=== PATIENT | female | born 1955 | race Hispanic/Latino ===

== ENCOUNTER 2020-03-27 10:01 | Day surgery (SDC) | payer OTHER, SELFPAY | END 2020-03-27 11:45 | disposition home or self-care (01) | LOC: CATHLABREC 10:01 | PROVIDERS: ATTEND Internal Medicine | DX: I44.2 Atrioventricular block, complete (principal) | CPT/HCPCS: 76000 ==

== ENCOUNTER 2021-09-04 16:13 | Emergency (ER) | payer MEDICARE, SELFPAY ==
[2021-09-04] MEDS ORDERED: NITROGLYCERIN 0.4 MG TAB SUBL SL ONE (17:09)
[2021-09-04] MEDS ORDERED: oxyCODONE /ACETAMINOPHEN 5-325MG TAB PO ONE (17:11)
--- NOTE | 2021-09-04 17:12 | Emergency Department Report ---
ED General Adult HPI - General Chief complaint: Skin Rash Stated complaint: I have a rash on my left chest, left arm and back. I think it is shingles. It is causing me to have chest pain. Time Seen by Provider: 09/04/21 16:52 Source: patient, RN notes reviewed, old records reviewed Mode of arrival: Ambulatory Limitations: No Limitations - History of Present Illness Initial comments: The patient was evaluated in the emergency department for symptoms described in the history of present illness. He/she was evaluated in the context of the global COVID-19 pandemic, which necessitated consideration that the patient might be at risk for infection with the virus that causes COVID-19. Institutional protocols and algorithms that pertain to the evaluation of patients at risk for COVID-19 are in a state of rapid change based on information released by regulatory bodies including the CDC and federal and state organizations. These policies and algorithms were followed during the patient's care in the emergency department. Please note that these policies, procedures and recommendations changed on a rapid basis. The patient is a 66-year-old female. She typically follows with [facility] cardiology. She presents to the ER today with a complaint of "I think I have shingles." The patient reports that she has not received her shingles vaccination. She presents to the ER with a few days of anterior left-sided chest wall pain, left-sided back pain, and left upper extremity pain, associated with a pruritic intensely painful rash. She denies travel, surgery, immobilization. She reports that she saw her email designer last month, and reports an extensive work-up as an outpatient, including stress test and echocardiogram, which she reports were unremarkable. She does report that she has a central and left- sided chest pain, correlating with the distribution of her rash, she also has some chronic shortness of breath, and she reports a little bit of lightheadedness, without loss of consciousness. She reports that she was diagnosed as an outpatient with intermittent A. fib by her email designer, who recommended eliquis. She also reports that this medication is too expensive for her to take at this time, and reports that she believes that it cost $300 per month. She is therefore not taking it. She otherwise reports compliance with her outpatient medications. -: Gradual, days(s) Location: chest, back, left, upper extremity Radiation: back, other (Left upper extremity) Quality: burning, aching Consistency: constant Improves with: none Worsens with: movement - Related Data Home Medications Medication Instructions Recorded Confirmed Last Taken Aspirin [Aspirin BABY CHEW TAB] 81 mg PO DAILY 03/29/20 03/29/20 03/28/20 Previous Rx's Medication Instructions Recorded Last Taken Type ALPRAZolam [Xanax TAB] 1 mg PO QHS PRN 7 Days #7 tablet 03/14/20 03/28/20 Rx AtorvaSTATin [Lipitor] 20 mg PO QHS 30 Days #30 tablet 03/14/20 03/28/20 Rx lisinopriL [Zestril TAB] 40 mg PO QDAY 30 Days #30 tablet 03/14/20 03/28/20 Rx oxyCODONE /ACETAMINOPHEN [Percocet 1 tab PO Q6HR PRN #7 tablet 03/14/20 03/28/20 Rx 5/325] cephALEXin [Keflex] 500 mg PO Q8HR 7 Days #21 cap 03/30/20 Unknown Rx Acetaminophen [Non-Aspirin Extra 650 mg PO Q6HR PRN #30 tablet 09/04/21 Unknown Rx Strength] Capsaicin 0.075% [Zostrix Hp 1 applicatio TP TID 7 Days #1 tube 09/04/21 Unknown Rx 0.075%] Valacyclovir HCl [Valtrex] 1,000 mg PO TID 10 Days #30 tab 09/04/21 Unknown Rx Allergies Allergy/AdvReac Type Severity Reaction Status Date / Time aspirin Allergy Hives Verified 03/29/20 15:33 TAPE Allergy Intermediate Hives Uncoded 03/29/20 10:01 ED Review of Systems ROS: Stated complaint: CHEST PAIN Other details as noted in HPI Constitutional: denies: fever Eyes: denies: vision change ENT: denies: epistaxis Respiratory: shortness of breath. denies: cough Cardiovascular: chest pain Gastrointestinal: denies: abdominal pain, vomiting, diarrhea, hematemesis, melena, hematochezia Genitourinary: denies: dysuria Musculoskeletal: back pain Skin: rash, lesions Neurological: weakness (Chronic) Hematological/Lymphatic: denies: easy bleeding ED Past Medical Hx - Past Medical History Previous Medical History?: Yes Hx Hypertension: Yes Hx Heart Attack/AMI: Yes (2013; medical management only) Hx Congestive Heart Failure: Yes Hx GERD: Yes Hx Liver Disease: No Hx Renal Disease: No Hx Arthritis: Yes Hx Asthma: Yes Hx COPD: Yes - Surgical History Hx Pacemaker: Yes Hx Internal Defibrillator: No - Social History Smoking Status: Never Smoker - Medications Home Medications: Home Medications Medication Instructions Recorded Confirmed Last Taken Type ALPRAZolam [Xanax TAB] 1 mg PO QHS PRN 7 Days #7 tablet 03/14/20 03/29/20 03/28/20 Rx AtorvaSTATin [Lipitor] 20 mg PO QHS 30 Days #30 tablet 03/14/20 03/29/20 03/28/20 Rx lisinopriL [Zestril TAB] 40 mg PO QDAY 30 Days #30 tablet 03/14/20 03/29/20 03/28/20 Rx oxyCODONE /ACETAMINOPHEN [Percocet 1 tab PO Q6HR PRN #7 tablet 03/14/20 03/29/20 03/28/20 Rx 5/325] Aspirin [Aspirin BABY CHEW TAB] 81 mg PO DAILY 03/29/20 03/29/20 03/28/20 History cephALEXin [Keflex] 500 mg PO Q8HR 7 Days #21 cap 03/30/20 Unknown Rx Acetaminophen [Non-Aspirin Extra 650 mg PO Q6HR PRN #30 tablet 09/04/21 Unknown Rx Strength] Capsaicin 0.075% [Zostrix Hp 1 applicatio TP TID 7 Days #1 tube 09/04/21 Unknown Rx 0.075%] Valacyclovir HCl [Valtrex] 1,000 mg PO TID 10 Days #30 tab 09/04/21 Unknown Rx ED Physical Exam - General Limitations: No Limitations General appearance: alert, in no apparent distress, obese - Head Head exam: Present: atraumatic, normocephalic - Eye Eye exam: Present: normal appearance, EOMI. Absent: nystagmus - ENT ENT exam: Present: normal exam, normal orophraynx, mucous membranes moist, normal external ear exam - Neck Neck exam: Present: normal inspection, full ROM. Absent: tenderness, meningismus - Respiratory Respiratory exam: Present: normal lung sounds bilaterally. Absent: respiratory distress, wheezes, rales, rhonchi, stridor, decreased breath sounds - Cardiovascular Cardiovascular Exam: Present: regular rate, normal rhythm. Absent: tachycardia, irregular rhythm, systolic murmur, diastolic murmur, rubs, gallop - GI/Abdominal GI/Abdominal exam: Present: soft. Absent: distended, tenderness, guarding, r ebound, rigid, pulsatile mass - Extremities Exam Extremities exam: Present: full ROM, pedal edema (1+ edema in the bilateral lower extremity), other (2+ pulses noted in the bilateral upper and lower extremities. There is no palpable cord. negative Homans sign. Muscular compartments are soft. The pelvis is stable.). Absent: normal inspection (On the left lateral, posterior arm, there is a vesicular rash in the distribution of the patient's pain), calf tenderness - Back Exam Back exam: Absent: normal inspection (On the left posterior scapula, and circling around to the left mid thorax, there is a vesicular rash/lesions noted, consistent with zoster, in the distribution of the patient's physical pain), tenderness, CVA tenderness (R), CVA tenderness (L), paraspinal tenderness, vertebral tenderness - Neurological Exam Neurological exam: Present: alert, oriented X3, normal gait, other (No facial droop. Tongue midline. Extraocular movements intact bilaterally. Facial sensation intact to light touch in V1, V2, V3 distribution bilaterally. 5 and a 5 strength in 4 extremities. Sensation intact to light touch in 4 extremities.). Absent: motor sensory deficit - Psychiatric Psychiatric exam: Present: anxious - Skin Skin exam: Present: warm, dry, erythema, vesicles (Vesicles noted on the left anterior chest wall, left breast, left lateral thorax, left posterior thorax, and left lateral bicep/arm.) ED Course Vital Signs 09/04/21 16:48 Temperature 98.5 F Pulse Rate 90 Respiratory 16 Rate Blood Pressure 176/73 [Right] O2 Sat by Pulse 96 Oximetry ED Medical Decision Making - Lab Data Result diagrams: 09/04/21 18:08 09/04/21 18:08 Vital Signs 09/04/21 16:48 Temperature 98.5 F Pulse Rate 90 Respiratory 16 Rate Blood Pressure 176/73 [Right] O2 Sat by Pulse 96 Oximetry Lab Results 09/04/21 09/04/21 09/04/21 Range/Units 18:08 18:08 18:08 WBC 6.7 (4.5-11.0) K/mm3 RBC 4.62 (3.65-5.03) M/mm3 Hgb 13.3 (10.1-14.3) gm/dl Hct 39.4 (30.3-42.9) % MCV 85 (79-97) fl MCH 29 (28-32) pg MCHC 34 (30-34) % RDW 14.5 (13.2-15.2) % Plt Count 226 (140-440) K/mm3 Lymph % (Auto) 23.5 (13.4-35.0) % Lanier % (Auto) 11.9 H (0.0-7.3) % Eos % (Auto) 0.5 (0.0-4.3) % Baso % (Auto) 0.4 (0.0-1.8) % Lymph # (Auto) 1.6 (1.2-5.4) K/mm3 Lanier # (Auto) 0.8 (0.0-0.8) K/mm3 Eos # (Auto) 0.0 (0.0-0.4) K/mm3 Baso # (Auto) 0.0 (0.0-0.1) K/mm3 Seg Neutrophils % 63.7 (40.0-70.0) % Seg Neutrophils # 4.2 (1.8-7.7) K/mm3 PT 13.5 (12.2-14.9) Sec. INR 0.93 (0.87-1.13) APTT 24.1 L (24.2-36.6) Sec. Sodium (137-145) mmol/L Potassium (3.6-5.0) mmol/L Chloride (98-107) mmol/L Carbon Dioxide (22-30) mmol/L Anion Gap mmol/L BUN (7-17) mg/dL Creatinine (0.6-1.2) mg/dL Estimated GFR ml/min BUN/Creatinine Ratio % Glucose (65-100) mg/dL Calcium (8.4-10.2) mg/dL Total Bilirubin (0.1-1.2) mg/dL AST (5-40) units/L ALT (7-56) units/L Alkaline Phosphatase (35-129) units/L Troponin T (0.00-0.029) ng/mL NT-Pro-B Natriuret Pep 677.8 (0-900) pg/mL Total Protein (6.3-8.2) g/dL Albumin (3.9-5) g/dL Albumin/Globulin Ratio % / Range/Units 18:08 WBC (4.5-11.0) K/mm3 RBC (3.65-5.03) M/mm3 Hgb (10.1-14.3) gm/dl Hct (30.3-42.9) % MCV (79-97) fl MCH (28-32) pg MCHC (30-34) % RDW (13.2-15.2) % Plt Count (140-440) K/mm3 Lymph % (Auto) (13.4-35.0) % Lanier % (Auto) (0.0-7.3) % Eos % (Auto) (0.0-4.3) % Baso % (Auto) (0.0-1.8) % Lymph # (Auto) (1.2-5.4) K/mm3 Lanier # (Auto) (0.0-0.8) K/mm3 Eos # (Auto) (0.0-0.4) K/mm3 Baso # (Auto) (0.0-0.1) K/mm3 Seg Neutrophils % (40.0-70.0) % Seg Neutrophils # (1.8-7.7) K/mm3 PT (12.2-14.9) Sec. INR (0.87-1.13) APTT (24.2-36.6) Sec. Sodium 135 L (137-145) mmol/L Potassium 4.4 (3.6-5.0) mmol/L Chloride 97.5 L (98-107) mmol/L Carbon Dioxide 25 (22-30) mmol/L Anion Gap 17 mmol/L BUN 11 (7-17) mg/dL Creatinine 0.7 (0.6-1.2) mg/dL Estimated GFR > 60 ml/min BUN/Creatinine Ratio 16 % Glucose 120 H (65-100) mg/dL Calcium 9.1 (8.4-10.2) mg/dL Total Bilirubin 0.80 (0.1-1.2) mg/dL AST 34 (5-40) units/L ALT 30 (7-56) units/L Alkaline Phosphatase 129 (35-129) units/L Troponin T < 0.010 (0.00-0.029) ng/mL NT-Pro-B Natriuret Pep (0-900) pg/mL Total Protein 8.1 (6.3-8.2) g/dL Albumin 4.1 (3.9-5) g/dL Albumin/Globulin Ratio 1.0 % - EKG Data -: EKG Interpreted by Pa - EKG Data 09/04/21 19:40 The EKG is interpreted at 17: 18. Ventricular paced rhythm, 95 bpm, left axis deviation, appropriate ventricular capture. QTC is 497 ms. The EKG today is unchanged from prior EKG from March 2020 - Radiology Data Radiology results: pending, report reviewed, image reviewed CHEST 2 VIEWS INDICATION / CLINICAL INFORMATION: Chest Pain. COMPARISON: 03/29/2020 FINDINGS: SUPPORT DEVICES: Pacemaker appears unchanged HEART / MEDIASTINUM: Unchanged LUNGS / PLEURA: No significant pulmonary or pleural abnormality. No pneumothorax. ADDITIONAL FINDINGS: No significant additional findings. IMPRESSION: 1. No acute findings. Signer Name: Valeriy Silva MD Signed: 09/04/2021 4:40 PM Workstation Name: [id number] CT head/brain wo con INDICATION: a fib, dizzy. TECHNIQUE: Routine CT head. All CT scans at this location are performed using CT dose reduction for ALARA by means of automated exposure control. COMPARISON: None. FINDINGS: Intracranial: Evans-white matter differentiation is maintained. No intracranial hemorrhage. No extra axial collection. No hydrocephalus. No herniation. Sinuses: Paranasal sinuses and mastoid air cells are essentially clear. Orbits: Globes are intact. Calvarium: No acute fracture. IMPRESSION: 1. No acute intracranial abnormality. Signer Name: Pavan Whitaker MD Signed: 09/04/2021 4:51 PM Workstation Name: [id number] - Medical Decision Making Differential diagnosis, including but not limited to: Orthostasis, vagal event, zoster/shingles Coronary artery disease Assessment and plan: 66-year-old female, who was afebrile, with reassuring vital signs who is clinically sober, with a GCS of 15, who walks with a steady gait, who was found to have evidence of zoster/shingles on her left anterior chest lateral chest and thorax, left posterior thorax, and left upper extremity, which is likely causing her to have chest pain. Chest x-ray clear. Laboratory studies nonactionable. Noncontrast CT scan of the brain negative for acute findings. Patient reports having had a cardiac restratification as an outpatient within the past few weeks. She also had a cardiac catheterization performed March 2020, which demonstrated mild to moderate nonobstructive disease, 50 to 60% mid LAD lesion, preserved LV function, EF at 55 to 60%. Her age, risk factors, and cardiovascular risk factor profile are reviewed and appreciated. However, given her obvious zoster-like rash, her pain is likely coming from herpes zoster/shingles. Furthermore, her chest pain has been present for days, troponin is negative x1, therefore, myocardial infarction may be ruled out with one set of troponin/cardiac enzymes. Contacted covering cardiology on-call, Dr. Carrington. Discussed the patient's history, physical, laboratory studies and imaging studies and clinical impression. We are both in agreement that this patient does not require admission to the hospital for cardiac risk stratification. Patient will be given a good Rx affordable prescription card, Dr. Carrington advises that this patient may present to the office, to seek prior authorization for affordable prescriptions. Patient presenting within 48 hours of symptom onset, we will therefore start her on valacyclovir. May also take acetaminophen, warm compresses, we will withhold narcotics at this time, given advanced age, obesity, and multiple medical comorbidities. This patient is observed in the ER for hours without clinical decompensation. Critical care attestation.: If time is entered above; I have spent that time in minutes in the direct care of this critically ill patient, excluding procedure time. ED Disposition Clinical Impression: Zoster, Dizziness, Chest pain Disposition: HOME / SELF CARE / HOMELESS Is pt being admited?: No Does the pt Need Aspirin: No Condition: Good Instructions: Shingles, Neuropathic Pain, Nonspecific Chest Pain, Adult Additional Instructions: Chest wall pain, back pain and left arm pain likely coming from shingles/herpes zoster. This is a viral infection that the patient will likely have intermittently for the rest of her life. Please take the Valtrex as prescribed, use the acetaminophen as needed for physical pain, and Spacing as needed for physical pain to the rash. Please continue current outpatient medications. Please use the good Rx affordable prescription card to obtain affordable prescriptions. Patient may also download the good Rx application on her cell phone, to obtain affordable prescriptions. In addition, your cardiology group would like you to come into the office, for reevaluation for your prescription of eliquis, and seek prior authorization for this prescription. Please continue current outpatient medications otherwise. Please return to the emergency room right away with new pain, worsened pain, migration of pain, projectile vomiting, change in mental status, confusion, inability tolerate liquid feeds, new, worsened or different symptoms not present on the initial emergency room evaluation Follow-up with your email designer within the next week. Follow-up with your primary care doctor within the next week Prescriptions: Acetaminophen [Non-Aspirin Extra Strength] 650 mg PO Q6HR PRN #30 tablet PRN Reason: Pain , Severe (7-10) Valacyclovir HCl [Valtrex] 1,000 mg PO TID 10 Days #30 tab Capsaicin 0.075% [Zostrix Hp 0.075%] 1 applicatio TP TID 7 Days #1 tube Referrals: ROME MUSA DO [Primary Care Provider] - 3-5 Days ELLIOT MATTA MD [Staff Physician] - 3-5 Days
--- NOTE | 2021-09-04 17:45 | XRay Report ---
CHEST 2 VIEWS INDICATION / CLINICAL INFORMATION: Chest Pain. COMPARISON: 03/29/2020 FINDINGS: SUPPORT DEVICES: Pacemaker appears unchanged HEART / MEDIASTINUM: Unchanged LUNGS / PLEURA: No significant pulmonary or pleural abnormality. No pneumothorax. ADDITIONAL FINDINGS: No significant additional findings. IMPRESSION: 1. No acute findings. Signer Name: Valeriy Silva MD Signed: 09/04/2021 5:40 PM Workstation Name: [id number]
--- NOTE | 2021-09-04 17:56 | Cat Scan Report ---
CT head/brain wo con INDICATION: a fib, dizzy. TECHNIQUE: Routine CT head. All CT scans at this location are performed using CT dose reduction for A AUGUSTINE by means of automated exposure control. COMPARISON: None. FINDINGS: Intracranial: Evans-white matter differentiation is maintained. No intracranial hemorrhage. No extra a xial collection. No hydrocephalus. No herniation. Sinuses: Paranasal sinuses and mastoid air cells are essentially clear. Orbits: Globes are intact. Calvarium: No acute fracture. IMPRESSION: 1. No acute intracranial abnormality. Signer Name: Pavan Whitaker MD Signed: 09/04/2021 5:51 PM Workstation Name: [id number]
[2021-09-04] MEDS ORDERED: valACYclovir 500 MG TAB PO ONE (18:13)
[2021-09-04 18:40] LABS: Basophils % (Auto) 0.4 % (0.0-1.8); Eosinophils % (Auto) 0.5 % (0.0-4.3); Hematocrit 39.4 % (30.3-42.9); Hemoglobin 13.3 gm/dl (10.1-14.3); Lymphocytes # (Auto) 1.6 K/mm3 (1.2-5.4); Lymphocytes % (Auto) 23.5 % (13.4-35.0); Mean Corpuscular HGB Conc 34 % (30-34); Mean Corpuscular Volume 85 fl (79-97); Monocytes # (Auto) 0.8 K/mm3 (0.0-0.8); Monocytes % (Auto) 11.9 % (0.0-7.3); Platelet Count 226 K/mm3 (140-440); Red Blood Count 4.62 M/mm3 (3.65-5.03); Red Cell Distribution Width 14.5 % (13.2-15.2)
[2021-09-04 18:53] LABS: INR 0.93 (0.87-1.13)
[2021-09-04 18:54] LABS: Partial Thromboplastin Time 24.1 Sec. (24.2-36.6)
[2021-09-04 18:59] LABS: Alanine Aminotransferase 30 units/L (7-56); Albumin 4.1 g/dL (3.9-5); Blood Urea Nitrogen 11 mg/dL (7-17); Calcium 9.1 mg/dL (8.4-10.2); Hemolysis Index 9
[2021-09-04 19:05] LABS: BUN/Creatinine Ratio 16
[2021-09-04 20:34] VITALS: BP 139/83
== END 2021-09-04 20:10 | disposition home or self-care (01) ==
LOC: ED 16:13
DX: R07.9 Chest pain, unspecified (principal); B02.9 Zoster without complications; R42 Dizziness and giddiness; I11.0 Hypertensive heart disease with heart failure; I50.9 Heart failure, unspecified; K21.9 Gastro-esophageal reflux disease without esophagitis; M19.90 Unspecified osteoarthritis, unspecified site; J45.909 Unspecified asthma, uncomplicated; J44.9 Chronic obstructive pulmonary disease, unspecified; Z96.89 Presence of other specified functional implants; Z88.8 Allergy status to other drugs, medicaments and biological substances
CPT/HCPCS: 36415; 70450; 71046; 80053; 83880; 84484; 85025; 85610; 85730; 93005; 99284